=== PATIENT | female | born 1960 | race Caucasian/White ===

== ENCOUNTER → 2017-01-24 | Outpatient (CLI) | payer BC ==
[~2017-01-24] MED LIST: ATV1 PO; CETI10TA84 PO; CHOL100027 PO; CLX20 PO; FERR28TA2 PO; VSK5 PO; [UNRECOGNIZED DRUG - REMARK] PO
--- NOTE | 2017-01-25 07:55 | MAMMOGRAPHY REPORT ---
BILATERAL DIGITAL SCREENING MAMMOGRAM TOMOSYNTHESIS WITH CAD: 01/24/2017 CLINICAL HISTORY: Routine screening. Patient has no complaints. TECHNIQUE: Breast tomosynthesis in addition to standard 2D mammography was performed. Current study was also evaluated with a Computer Aided Detection (CAD) system. COMPARISON: Comparison is made to exams dated: 07/06/2015 mammogram, 06/24/2015 mammogram, 05/08/2014 m ammogram, 05/07/2013 mammogram, 05/21/2012 ultrasound biopsy, and 05/13/2012 ultrasound - [facility]. BREAST COMPOSITION: The tissue of both breasts is extremely dense, which lowers the sensitivity of mammography. FINDINGS: There are scattered benign rim calcifications of the breasts. A metallic biopsy marker in the anterior left breast. No new suspicious mass, architectural distortion or cluster of suspiciou s microcalcifications is seen. IMPRESSION: ACR BI-RADS CATEGORY 1: NEGATIVE There is no mammographic evidence of malignancy. A 1 year screening mammogram is recommended. The p atient will receive written notification of the results. Approximately 10% of breast cancers are not detected with mammography. A negative mammographic repor t should not delay biopsy if a clinically suggestive mass is present. Shania Rolle M.D. ay/:01/24/2017 17:12:24 Fish Inspector: Violeta GARRISON)(Thom), [facility] letter sent: Normal 1/2 BI-RADS Code: ACR BI-RADS Category 1: Negative
== END | disposition home or self-care (01) ==
LOC: C.MAMM 15:47
PROVIDERS: ATTEND Obstetrics & Gynecology
DX: Z12.31 Encounter for screening mammogram for malignant neoplasm of breast (principal)

== ENCOUNTER → 2017-03-07 | Outpatient (CLI) | payer BC ==
[~2017-03-07] MED LIST changes: +GADAVIST IV PRN
--- NOTE | 2017-03-07 14:57 | DIAGNOSTIC IMAGING REPORT ---
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 Signal characteristics of the cerebellar as well as cerebral hemispheres are within normal limits. There is no evidence for abnormal postcontrast enhancement. Structures of the internal auditory canals are unremarkable. There is no evidence for abnormal enhancement of the 7th or 8th nerves. IMPRESSION: Normal study Electronically signed by: Brandon Ochoa M.D. 03/07/2017 2:55 PM Dictated Date/Time: 03/07/2017 2:51 PM
== END | disposition home or self-care (01) ==
LOC: C.OPENMRI 13:20
PROVIDERS: ATTEND Physician Assistant
DX: H90.8 Mixed conductive and sensorineural hearing loss, unspecified (principal)